=== PATIENT | male | born 1965 | race African-American/Black ===

== ENCOUNTER 2019-12-23 07:10 | Emergency (ER) | payer OTHER ==
[~2019-12-23] VITALS: Ht 175.3 cm; Wt 128.0 kg
[2019-12-23] MEDS ORDERED: TETANUS, DIPHTHERIA, PERTUSSIS VAC/PF 0.5ML (>7YR OLD) IM ONE (09:00)
[2019-12-23] MEDS ORDERED: IBUPROFEN 600MG TABLET PO ONE (09:00)
[2019-12-23] MEDS ORDERED: LIDOCAINE 1%/EPI 1:100,000 10 ML VIAL IJ ONE (09:00)
[2019-12-23] MEDS ORDERED: BACITRACIN ZINC OINT UDPKT TOP ONE (09:00)
[2019-12-23] MEDS ORDERED: ACETAMINOPHEN WITH CODEINE 300/30MG TABLET PO STA (09:50)
[2019-12-23 12:28] VITALS: BP 134/84
== END 2019-12-23 12:39 | disposition home or self-care (01) ==
LOC: ER 07:34
DX: S51.812A Laceration without foreign body of left forearm, initial encounter (principal); V49.40XA Driver injured in collision with unspecified motor vehicles in traffic accident, initial encounter; Y93.89 Activity, other specified; Y92.89 Other specified places as the place of occurrence of the external cause; Y99.8 Other external cause status
CPT/HCPCS: 12004; 73080; 73090; 73562; 90471; 90715; 99284; J3490

== ENCOUNTER 2019-12-26 08:53 | Emergency (ER) | payer SELFPAY ==
[~2019-12-26] VITALS: Ht 182.9 cm; Wt 73.0 kg
[2019-12-26 09:00] VITALS: BP 123/73
== END 2019-12-26 09:18 | disposition home or self-care (01) ==
LOC: ER 08:53
DX: S51.012D Laceration without foreign body of left elbow, subsequent encounter (principal); Z48.00 Encounter for change or removal of nonsurgical wound dressing; Z98.890 Other specified postprocedural states; Z51.89 Encounter for other specified aftercare; X58.XXXD Exposure to other specified factors, subsequent encounter
CPT/HCPCS: 99281

== ENCOUNTER 2020-01-14 09:42 | Emergency (ER) | payer MEDICAID ==
[~2020-01-14] VITALS: Ht 182.9 cm; Wt 118.0 kg
[2020-01-14 09:44] VITALS: BP 112/67
[2020-01-14] MEDS ORDERED: CEPHALEXIN 250MG CAPSULE PO NR (10:30)
== END 2020-01-14 11:00 | disposition home or self-care (01) ==
LOC: ER 09:59
DX: Z48.02 Encounter for removal of sutures (principal)
CPT/HCPCS: 99283

== ENCOUNTER 2020-02-10 09:22 | Emergency (ER) | payer MEDICARE, MEDICAID ==
[~2020-02-10] VITALS: Ht 182.9 cm; Wt 118.0 kg
[2020-02-10 10:52] VITALS: BP 124/81
== END 2020-02-10 10:53 | disposition home or self-care (01) ==
LOC: ER 09:22
DX: L40.9 Psoriasis, unspecified (principal); Z98.890 Other specified postprocedural states
CPT/HCPCS: 99283

== ENCOUNTER 2020-07-11 06:56 | Emergency (ER) | payer MEDICARE, MEDICAID ==
[~2020-07-11] VITALS: Ht 182.9 cm; Wt 129.0 kg
[2020-07-11] MEDS ORDERED: ACETAMINOPHEN 325MG TABLET PO ONE (08:15)
[2020-07-11] MEDS ORDERED: AMOXICILLIN/POTASSIUM CLAVULANATE 875/125MG TAB PO ONE (08:45)
[2020-07-11] MEDS ORDERED: LIDOCAINE HCL 1% 20ML VIAL (Pyxis) INJ INFIL ONE (08:45)
[2020-07-11] MEDS ORDERED: AMOX-424 MT (09:59)
[2020-07-11] MEDS ORDERED: OXYC-100 MT ×4 (09:59→11:05)
[2020-07-11 10:15] VITALS: BP 141/84
[2020-07-11] MEDS ORDERED: OXYC-662 MT ×2 (10:57→10:58)
== END 2020-07-11 10:16 | disposition home or self-care (01) ==
LOC: ER 06:56
DX: K02.9 Dental caries, unspecified (principal); Z98.890 Other specified postprocedural states; Z79.899 Other long term (current) drug therapy
CPT/HCPCS: 99284; J3490; 99283

== ENCOUNTER 2021-04-27 19:58 | Emergency (ER) | payer OTHER, MEDICAID ==
[~2021-04-27] VITALS: Ht 188 cm; Wt 100.0 kg
[~2021-04-27 19:58] MED LIST: AMOX-424 MT; OXYC-100 MT
[2021-04-27 20:51] LABS: BASOPHILS % 0.6 % (0.0-2.0); EOSINOPHILS % 1.5 % (0.0-5.0); HEMATOCRIT. 36.8 % (42.0-52.0); LYMPHOCYTES % 15.2 % (20.0-50.0); MEAN CORPUSCULAR HEMOGLOBIN 27.5 pg (28.0-32.0); MEAN CORPUSCULAR VOLUME 84.5 fL (80.0-94.0); MEAN PLATELET VOLUME 6.6 fl (7.4-10.4); MONOCYTES % 5.3 % (2.0-8.0); NEUTROPHILS % 77.4 % (40.0-76.0); PLATELET 346 x1000/uL (130-400); RED BLOOD CELL COUNT 4.36 mill/uL (4.7-6.1)
[2021-04-27 20:58] LABS: CHLORIDE 118 mEq/L (98-107)
[2021-04-27 21:06] LABS: ETHANOL BLOOD < 10 mg/dL
[2021-04-27 21:30] VITALS: BP 117/66
[2021-04-27] MEDS ORDERED: POTASSIUM CHLORIDE 20MEQ TABLET SR PO ONE (21:30)
[2021-04-27] MEDS ORDERED: SODIUM CHLORIDE 0.9% 1,000 ML IV ONE (21:30)
[2021-04-28 00:42] LABS: *AMPHETAMINES SCREEN URINE NEGATIVE (NEGATIVE); *BARBITURATES SCREEN URINE NEGATIVE (NEGATIVE)
[2021-04-28 00:43] LABS: *BENZODIAZEPINES SCREEN URINE NEGATIVE (NEGATIVE); *COCAINE SCREEN URINE NEGATIVE (NEGATIVE); METHADONE URINE SCREEN NEGATIVE (NEGATIVE); OPIATES URINE SCREEN NEGATIVE (NEGATIVE); PHENCYCLIDINE URINE SCREEN NEGATIVE (NEGATIVE)
[2021-04-28 00:44] LABS: CANNABINOID URINE SCREEN PRESUMTIVE POSITIVE (NEGATIVE)
== END 2021-04-28 01:04 | disposition home or self-care (01) ==
LOC: ER 19:58
DX: R55 Syncope and collapse (principal); R42 Dizziness and giddiness; S50.311A Abrasion of right elbow, initial encounter; R73.03 Prediabetes; F12.10 Cannabis abuse, uncomplicated; E87.8 Other disorders of electrolyte and fluid balance, not elsewhere classified; W01.0XXA Fall on same level from slipping, tripping and stumbling without subsequent striking against object, initial encounter; Y93.89 Activity, other specified; Y92.018 Other place in single-family (private) house as the place of occurrence of the external cause
CPT/HCPCS: 36415; 70450; 71045; 80053; 80305; 80320; 83880; 84484; 85025; 93005; 96360; 99285; J7030; G0480